=== PATIENT | female | born 1925 | race Caucasian/White ===

== ENCOUNTER 2017-01-08 11:02 | Emergency (ER) | payer OTHER, BC ==
[2017-01-08 11:19] VITALS: BP 158/100; PULSE 99; TEMP 98.2; BMI 21.4
--- NOTE | 2017-01-08 13:00 | PDOC ---
History of Present Illness - General Chief Complaint: Blood Pressure Problem Stated Complaint: HIGH BP, NOSE BLEEDING Time Seen by Provider: 01/08/17 12:23 History Source: Patient Exam Limitations: No Limitations - History of Present Illness Initial Comments: 01/08/17 12:59 89y F hx htn, hypothyroidism presents with htn and epistaxis. The pt states the past few days her bp has been elevated to the 190s, and she noticed intermittent blood in thet issue when she blew her nose.The pt armani priscilla epistaxis. Pt denies any bruising, bpr/melena, palpitations, lightheadedness, cp , sob. pt not on any blood thinners. No prior history of epistaxis or ENT problems in the past. pt has no complaints currently. Past History - Past Medical History Allergies/Adverse Reactions: Allergies Allergy/AdvReac Type Severity Reaction Status Date / Time Penicillins Allergy Verified 01/08/17 11:15 Home Medications: Ambulatory Orders Levothyroxine [Synthroid -] 25 mcg PO DAILY #0 tablet 09/24/13 Aspirin [ASA -] 81 mg PO DAILY #0 tab.chew 03/03/15 Amlodipine Besylate/Benazepril [Lotrel 5-40 mg Capsule] 1 each PO DAILY Omeprazole 20 mg PO DAILY 01/08/17 Anemia: Yes Asthma: No Cancer: No Cardiac Disorders: No CVA: No COPD: No CHF: No Dementia: No Diabetes: No GI Disorders: Yes (CECAL MASS) Disorders: No HTN: Yes Hypercholesterolemia: No Liver Disease: No Seizures: No Thyroid Disease: Yes - Surgical History Abdominal Surgery: Yes (RONNY-COLECTOMY) Appendectomy: No Cardiac Surgery: No Cholecystectomy: Yes Lung Surgery: No Neurologic Surgery: No Orthopedic Surgery: No - Psycho/Social/Smoking Cessation Hx Suicidal Ideation: No Smoking History: Never smoked Hx Alcohol Use: No Drug/Substance Use Hx: No Substance Use Type: None Hx Substance Use Treatment: No Review of Systems - Review of Systems Able to Perform ROS?: Yes Comments:: 01/08/17 13:12 Constitutional - no reported Fever, Chills, weakness, HEENT: no reported vision changes, sore throat Respiratory: no reported cough, sob, hemoptysis Cardiac: no reported chest pain, palpitations, light headedness, leg swelling Abd/GI: no reported abd pain, nausea, vomiting, blood per rectum, melena, diarrhea : no reported dysuria, frequency, discharge Musculskelatal - no reported back pain, joint swelling skin - no reported bruising, erythema, rash neurological: no reported headache, numbness, focal weakness, tingling, ataxia, weakness hematologic: no reported anemia, easy bruising, easy bleeding *Physical Exam - Vital Signs Last Vital Signs Temp Pulse Resp BP Pulse Ox 98.2 F 99 H 18 158/100 97 01/08/17 11:15 01/08/17 11:15 01/08/17 11:15 01/08/17 11:15 01/08/17 11:15 - Physical Exam Comments: 01/08/17 13:13 GENERAL: The patient is awake, alert, and fully oriented, Nontoxic - in no acute distress. HEAD: Normocephalic, atraumatic. EYES: extraocular movements intact, sclera anicteric, conjunctiva clear. ENT: Normal voice, Moist mucous membranes. NECK: Normal range of motion, supple LUNGS: Breath sounds equal, clear to auscultation bilaterally. No wheezes, no rhonchi, no rales. HEART: Regular rate and rhythm, normal S1 and S2 without murmur, rub or gallop. ABDOMEN: Soft, nontender, normoactive bowel sounds. No guarding, no rebound. . No CVA tenderness EXTREMITIES: Normal range of motion, no edema. No clubbing or cyanosis. No cords, erythema, or tenderness. NEUROLOGICAL: No facial assymetry, Normal speech, PSYCH: Normal mood, normal affect. SKIN: Warm, Dry, normal turgor, Medical Decision Making - Medical Decision Making 01/08/17 13:13 no bleeding pt noted mild htn will d/c the pt to fu with PMD return precautions were discussed I discussed the physical exam findings, ancillary test results and final diagnoses with the patient. I answered all of the patient's questions. The patient was satisfied with the care received and felt comfortable with the discharge plan and treatment plan. The patient will call their primary care physician within 24 hours to arrange follow-up and will return to the Emergency Department with any new, persistent or worsening symptoms. *DC/Admit/Observation/Transfer Diagnosis at time of Disposition: Epistaxis Hypertension Qualifiers: Hypertension type: essential hypertension Qualified Code(s): I10 - Essential ( primary) hypertension - Discharge Dispostion Disposition: HOME Condition at time of disposition: Improved Admit: No - Referrals Referrals: José Rodriguez MD [Primary Care Provider] - - Patient Instructions Printed Discharge Instructions: DI for High Blood Pressure Additional Instructions: Return to the emergency department immediately with ANY new, persistent or worsening symptoms. You MUST call and follow up with your doctor tomorrow for further evaluation of your symptoms. Results were discussed with you. Please make sure your doctor reviews the results of your emergency evaluation. If you had any xrays during your visit, it was read preliminarily by myself, a Radiologist will review it and if there are any additional findings we will call you.
== END 2017-01-08 13:47 | disposition home or self-care (01) ==
LOC: JER 11:02
DX: I10 Essential (primary) hypertension (principal); R42 Dizziness and giddiness; E03.9 Hypothyroidism, unspecified; D64.9 Anemia, unspecified
CPT/HCPCS: 99281-25